=== PATIENT | female | born 1980 | race Caucasian/White ===

== ENCOUNTER 2020-02-27 11:25 | Emergency (ER) | payer OTHER, SELFPAY ==
--- NOTE | ~2020-02-27 | XR_ITS ---
EXAMINATION: XR foot LT min 3V DATE: 02/27/2020 11:52 INDICATION: Left foot pain TECHNIQUE: Dorsoplantar, lateral, and 2 oblique views of the left foot were obtained. COMPARISON: None. FINDINGS: There is no fracture, dislocation, or subluxation. The bones, soft tissues, and joint space s are normal. IMPRESSION: 1. No acute osseous abnormality. Reviewed, dictated and finalized at location A.
[2020-02-27 11:39] VITALS: BP 108/45; PULSE 69; RESP 20; TEMP 37.3; O2SAT 100
--- NOTE | 2020-02-27 11:54 | ED.LOWEXIN ---
HPI - Extremity Injury (Lower) General Chief Complaint: Extremity Injury, Lower Stated Complaint: left foot injury Source: patient and RN notes reviewed Limitations: no limitations History of Present Illness HPI Narrative: The patient, previously mostly healthy and active, presents with left foot pain. Patient states she twisted slightly slipped injuring her left foot last night while playing dodgeball. Symptoms are mild, worse with activity, located at the first metatarsal/instep of the plantar fascia. No bleeding, deformity, prior injury; she continued to play after tightening her shoes and awoke with discomfort this morning Related Data Home Medications Medication Instructions Recorded Confirmed mesalamine PO 02/27/20 norethindrone-e.estradiol-iron tablet 02/27/20 [Blisovi 24 Fe] Allergies Allergy/AdvReac Type Severity Reaction Status Date / Time sesame seed Allergy Unknown Verified 02/27/20 11:51 soy Allergy Unknown Verified 02/27/20 11:51 wheat Allergy Unknown Verified 02/27/20 11:51 dairy Allergy Unknown Uncoded 02/27/20 11:51 egg whites Allergy Unknown Uncoded 02/27/20 11:51 Review of Systems Review of Systems: Narrative: General/Constitutional: No weight loss,fever Eyes: N0: Redness,discharge Ears/Nose/Throat: No: Epistaxis,ear discharge Respiratory: Denies: Hemoptysis Gastrointestinal: No Vomiting, Bleeding-rectal Skin: No Lumps, eruption Neurologic: No Focal Weakness,Sz Hematologic: Denies: Petechiae/Purpura Psychiatric: No: Suicida ideationl All Other Systems: Reviewed and Negative PMFSH Comments At time of signature, agree with nursing past medical, surgical, social and family history. There is no relevant family history pertinent to the presenting complaint Exam Narrative: Exam Narrative: General Appearance: Well appearing, Conjunctiva clear Ears: External ear normal, Auditory canal normal Nose: Normal nose, Nares clear Mouth/Throat: Normal appearing, Normal lips, Supple Respiratory: Airway patent, No respiratory distress MS foot: Normal strength (mostly intact, limited flexion/extension by pain), Tenderness medially at arch/instep, with mild decreased ROM), no swelling , Other (no anterior drawer, no collateral laxity, no Achilles tenderness, no fifth MT tenderness) Skin: Warm, Dry, Normal color Neurological: A&O x3, Normal affect Course Course Emergency Course: Films visualized, interpreted by radiologist, agree, normal see report Vital Signs Vital signs: Vital Signs Temperature 99.1 F 02/27/20 11:39 Pulse Rate 69 02/27/20 11:39 Respiratory Rate 20 02/27/20 11:39 Blood Pressure 108/45 L 02/27/20 11:39 Pulse Oximetry 100 02/27/20 11:39 Temperature 99.1 F 02/27/20 11:39 Pulse Rate 69 02/27/20 11:39 Respiratory Rate 20 02/27/20 11:39 Blood Pressure 108/45 L 02/27/20 11:39 Pulse Oximetry 100 02/27/20 11:39 Discharge Plan Discharge Patient Disposition: Home, Self-Care Condition: Stable Instructions: Foot Sprain (ED) Prescriptions: New tramadol 50 mg tablet 50 mg PO Q6H PRN (Reason: pain) Qty: 15 RF: 1 No Action norethindrone-e.estradiol-iron [Blisovi 24 Fe] 1 mg-20 mcg (24)/75 mg (4) tablet RF: 0 mesalamine 1.2 gram tablet,delayed release (DR/EC) PO RF: 0 Follow-up/Referrals: PHYSICIAN,[facility] [Primary Care Provider] -
== END 2020-02-27 12:53 | disposition home or self-care (01) ==
PROVIDERS: Emergency Provider Emergency Medicine
DX: S93.602A Unspecified sprain of left foot, initial encounter (principal); X50.9XXA Other and unspecified overexertion or strenuous movements or postures, initial encounter
CPT/HCPCS: 73630; 99213; G0463

== ENCOUNTER 2022-08-29 11:47 | Outpatient (CLI) | payer OTHER, SELFPAY ==
[2022-08-29 18:29] LABS: Basophils Absolute Auto 0.1 K/mm3 (0.0-0.1); Basophils Percent Auto 0.7 % (0.2-1.2); Eosinophils Absolute Auto 0.2 K/mm3 (0-0.3); Eosinophils Percent Auto 2.9 % (0-4.4); Hematocrit 43.4 % (37.0-47.0); Hemoglobin 13.8 g/dL (12.0-15.0); Immature Granulocyte Absolute 0.02 K/mm3 (0.00-0.031); Immature Granulocyte Percent A 0.2 % (0-0.5); Lymphocytes Absolute Auto 1.88 K/mm3 (0.9-3.2); Mean Corpuscular HGB Conc 31.8 g/dl (32-36); Mean Corpuscular Hemoglobin 31.3 pg (26-34); Mean Corpuscular Volume 98.4 fl (80-100); Mean Platelet Volume 10.6 fl (7.4-10.4); Monocytes Absolute Auto 0.6 K/mm3 (0.1-0.6); Monocytes Percent Auto 7.3 % (2.6-8.5); Neutrophils Absolute Auto 5.4 K/mm3 (1.3-6.7); Neutrophils Percent Auto 65.9 % (45.5-73.1); Platelet Count Result 325 k/mm3 (150-375); Red Blood Count 4.41 M/mm3 (4.2-5.4); Red Cell Distribution Width 12.9 % (11.5-14.5); White Blood Count 8.2 K/mm3 (4.5-10.0)
[2022-08-29 19:00] LABS: Appearance Urine Clear (Clear); Bacteria Urine Rare /hpf; Bilirubin Urine Negative (Negative); Blood Urine Negative (Negative); Color Urine Yellow (Yellow); Glucose Urine UA Negative (Negative); Ketones Urine Negative (Negative); Leukocyte Esterase Ur 2+ LEU/UL (NEGATIVE); Need Manual Microscopic Reviewed; Nitrate Urine Negative (Negative); Non Pathogenic Casts 0-2; Protein Urine Negative (Negative); Squamous Epithelial Cell Urine Occasional /hpf (Few); Urobilinogen Urine 0.2 mg/dL (<2.0); WBC Urine 0-5 /hpf (0-3)
[2022-08-29 19:01] LABS: Add Urine Microscopic? YES
[2022-08-29 20:05] LABS: Alanine Aminotransferase 16 U/L (6-35); Albumin Level 4.9 g/dL (3.5-5.1); Alkaline Phosphatase 49 U/L (38-126); Anion Gap 4 mmol/L (8-16); Aspartate Amino Transferase 46 U/L (14-36); Bilirubin,Total 0.6 mg/dL (0.2-1.3); Blood Urea Nitrogen 7 mg/dL (7-17); Calcium 9.5 mg/dL (8.4-10.2); Carbon Dioxide 29 mmol/L (22-30); Chloride 106 mmol/L (98-107); Cholesterol 189 mg/dL (0-200); Estimated Glomerular Filt Rate > 60; Glucose 89 mg/dL (65-110); HDL Direct 50 mg/dL; Potassium 4.4 mmol/L (3.4-5.0); Sodium 139 mmol/L (137-145); Triglycerides 52 mg/dL (<150)
[2022-08-29 20:17] LABS: LDL Cholesterol Direct 111 mg/dL
== END 2022-08-29 11:48 | disposition home or self-care (01) ==
LOC: ANHBWCLAB 11:48
PROVIDERS: PCP Family Medicine; Visit Provider Nurse Practitioner
DX: Z76.89 Persons encountering health services in other specified circumstances (principal)
CPT/HCPCS: 36415; 80053; 80061; 81001; 84443; 85025

== ENCOUNTER 2023-09-05 09:02 | Outpatient (CLI) | payer OTHER, SELFPAY ==
[2023-09-05 19:28] LABS: Alanine Aminotransferase 16 U/L (6-35); Albumin Level 4.6 g/dL (3.5-5.1); Alkaline Phosphatase 59 U/L (38-126); Anion Gap 7 mmol/L (4-12); Aspartate Amino Transferase 57 U/L (14-36); Bilirubin,Total 0.5 mg/dL (0.2-1.3); Blood Urea Nitrogen 13 mg/dL (7-17); Calcium 9.8 mg/dL (8.4-10.2); Carbon Dioxide 26 mmol/L (22-30); Chloride 104 mmol/L (98-107); Cholesterol 234 mg/dL (0-200); Estimated Glomerular Filt Rate > 60; Glucose 80 mg/dL (65-110); HDL Direct 58 mg/dL; Potassium 4.6 mmol/L (3.4-5.0); Sodium 137 mmol/L (137-145); Triglycerides 71 mg/dL (<150)
[2023-09-05 19:34] LABS: Hematocrit 43.4 % (37.0-47.0); Hemoglobin 13.6 g/dL (12.0-15.0); Mean Corpuscular HGB Conc 31.3 g/dl (32-36); Mean Corpuscular Hemoglobin 31.4 pg (26-34); Mean Corpuscular Volume 100.2 fl (80-100); Mean Platelet Volume 10.4 fl (7.4-10.4); Platelet Count Result 343 k/mm3 (150-375); Red Blood Count 4.33 M/mm3 (4.2-5.4)
[2023-09-05 19:39] LABS: LDL Cholesterol Direct 154 mg/dL
== END 2023-09-05 09:03 | disposition home or self-care (01) ==
PROVIDERS: PCP Nurse Practitioner Adult Health; Visit Provider Nurse Practitioner Adult Health
DX: Z13.9 Encounter for screening, unspecified (principal)
CPT/HCPCS: 36415; 80053; 80061; 84443; 85027

== ENCOUNTER 2023-11-05 13:40 | Outpatient (CLI) | payer OTHER, SELFPAY ==
--- NOTE | 2023-11-05 14:15 | NEURO_ITS ---
Impression: # Complains of right forearm discomfort. Non-Diabetic. # Normal Nerve Conduction Study. # No Carpal Tunnel Syndrome or ulnar neuropathy. # Ulnar to median cross innervation noted. # Normal needle/EMG exam. Nerve Conduction Studies Anti Sensory Summary Table Stim Site NR Peak (ms) P-T Amp (?V) Site1 Site2 Delta-P (ms) Dist (cm) Gerry (m/s) Right Median Anti Sensory (2-3nd Digit) Wrist 2.6 86.9 Wrist 2-3nd Digit 2.6 14.0 54 Wrist 2.5 69.5 Wrist 2-3nd Digit 2.6 14.0 54 Right Radial Anti Sensory (Base 1st Digit) Wrist 2.3 30.1 Wrist Base 1st Digit 2.3 0.0 Right Ulnar Anti Sensory (5th Digit) Wrist 2.3 64.6 Wrist 5th Digit 2.3 14.0 61 Motor Summary Table Stim Site NR Onset (ms) O-P Amp (mV) Site1 Site2 Delta-0 (ms) Dist (cm) Gerry (m/s) Right Median Motor (Abd Poll Brev) Wrist 2.6 11.5 Elbow Wrist 4.3 26.0 60 Elbow 6.9 8.2 Right Ulnar Motor (Abd Dig Minimi) Wrist 2.7 7.6 A Elbow Wrist 4.4 28.0 64 A Elbow 7.1 6.6 B Elbow Wrist 4.0 0.0 B Elbow 6.7 7.1 F Wave Studies NR F-Lat (ms) L-R F-Lat (ms) Right Median (Mrkrs) (Abd Poll Brev) 24.87 Right Ulnar (Mrkrs) (Abd Dig Min) 25.63 EMG Side Muscle Nerve Root Ins Act Fibs Amp Dur Recrt Comment Right 1stDorInt Ulnar C8-T1 Nml Nml Nml Nml Nml Right Ext Indicis Radial (Post Int) C7-8 Nml Nml Nml Nml Nml Right Ext Digitorum Radial (Post Int) C7-8 Nml Nml Nml Nml Nml Right BrachioRad Radial C5-6 Nml Nml Nml Nml Nml Right PronatorTeres Median C6-7 Nml Nml Nml Nml Nml Right Abd Poll Brev Median C8-T1 Nml Nml Nml Nml Nml Right ABD Dig Min Ulnar C8-T1 Nml Nml Nml Nml Nml MTDD
== END 2023-11-05 13:41 | disposition home or self-care (01) ==
PROVIDERS: PCP Nurse Practitioner Adult Health; Visit Provider Nurse Practitioner Adult Health
DX: G56.01 Carpal tunnel syndrome, right upper limb (principal)
CPT/HCPCS: 95886; 95909

== ENCOUNTER 2024-08-24 10:04 | Outpatient (CLI) | payer OTHER, SELFPAY ==
--- OUTSIDE RECORDS SUMMARY | 2024-08-24 11:20 | XMS_ITS ---
Author Organization Unknown Address [address] [place] [phone] Phone Care Team Providers Care Rinkman Name Role Phone NELIA DURAN Attending Unavailable Immunization Immunization Date Status Additional Notes Code Code System COVID-19, mRNA, LNP-S, PF, 3 0 mcg/0.3 mL dose 06/30/2020 Completed 208 CVX COVID-19, mRNA, LNP-S, PF, 3 0 mcg/0.3 mL dose 07/23/2020 Completed 208 CVX Results TROPONIN LEVEL - Collect Nima e/Time: 07/17/2024 00:45 [facility] ID: [id number] [place] [address], [id number] LOINC: 61520-0 Test Value Unit Reference Range Code Code System Flag TROPONIN < 0.012 ng/mL L=0.000 H=0.033 06845-3 LOINC CBC W/ DIFF - Collect Date/T jose j: 07/16/2024 21:20 [facility] ID: [id number] [address] [place] [address], [phone] LOINC: 22286-5 Test Value Unit Reference Range Code Code System Flag WBC 10.5 10^3uL L=4.8 H=10.8 RBC 4.23 10^6uL L=4.20 H=5.40 HEMOGLOBIN 12.9 g/dL L=12.0 H=16.0 718-7 LOINC HEMATOCRIT 38.9 VOL% L=37.0 H=47.0 4544-3 LOINC MCV 92.0 fL L=81.0 H=99.0 MCH 30.5 pg L=27.0 H=32.0 MCHC 33.2 g/dL L=32.0 H=36.0 PLATELETS 288 10^3uL L=100 H=400 94261-0 LOINC RDW 12.5 % L=11.7 H=15.5 %GRAN 72.4 % L=40.0 H=70.0 11418-3 LOINC H %LYMPH 18.5 % L=20.0 H=45.0 736-9 LOINC L %MONO 3.6 % L=2.0 H=10.0 69532-5 LOINC %EOS 4.8 % L=0.0 H=6.0 713-8 LOINC %BASO 0.3 % L=0.0 H=3.0 706-2 LOINC #NEUT 7.6 10^3uL L=1.9 H=7.6 91480-2 LOINC #LYMPH 2.0 10^3uL L=0.9 H=4.9 08222-0 LOINC #MONO 0.4 10^3uL L=0.1 H=0.9 39549-1 LOINC #EOS 0.5 10^3uL L=0.0 H=0.6 712-0 LOINC #BASO 0.03 10^3uL L=0.00 H=0.10 32500-6 LOINC #IM GRANS 0.0 10^3uL L=0.0 H=7.0 27436-9 LOINC %IM GRANS 0.4 % L=0.0 H=5.0 04632-2 LOINC %NRB 0.0 L=0.0 H=0.2 56662-1 LOINC #NRB 0.000 L=0.000 H=0.012 71740-9 LOINC MANUAL DIFF NOT INDICATED RBC MORPH NOT INDICATED COMPREHENSIVE METABOLIC PANE L - Collect Date/Time: 07/16/2024 21:20 [facility] ID: [id number] [address] [place], [place], [phone] LOINC: 26469-2 Test Value Unit Reference Range Code Code System Flag FASTING UNKNOWN BUN 9 mg/dL L=7 H=20 3094-0 LOINC CREATININE 0.70 mg/dL L=0.52 H=1.04 2160-0 LOINC GLUCOSE 108 mg/dL L=74 H=106 2345-7 LOINC H SODIUM 139 mmol/L L=132 H=144 2951-2 LOINC POTASSIUM 3.8 mmol/L L=3.5 H=5.1 2823-3 LOINC CHLORIDE 107 mmol/L L=98 H=107 2075-0 LOINC CO2 22.0 mmol/L L=22.0 H=30.0 2028-9 LOINC ANION GAP 14 L=10 H=20 58387-8 LOINC OSMOLALITY 287 mOs/kG L=280 H=296 07420-6 LOINC BUN/CREAT 12.9 3097-3 LOINC CALCIUM 9.9 mg/dL L=8.3 H=10.5 45857-2 LOINC AST 29 U/L L=15 H=46 1920-8 LOINC ALT 18 U/L L=9 H=72 1742-6 LOINC ALKALINE PHOS 52 U/L L=38 H=126 6768-6 LOINC TOTAL BILI 0.5 mg/dL L=0.2 H=1.3 1975-2 LOINC ALBUMIN 4.3 G/dL L=3.5 H=5.0 1751-7 LOINC TOTAL PROTEIN 8.1 g/L L=6.3 H=8.2 2885-2 LOINC A/G RATIO 1.1 70641-7 LOINC AGE 44 96713-6 LOINC eGFR NON-AFR 97 ml/min eGFR AFR AMER 117 ml/min D DIMER - Collect Date/Time: 07/16/2024 21:20 [facility] ID: [id number] [address] [place], [place], [phone] LOINC: Test Value Unit Reference Range Code Code System Flag DDIMER 1.30 mg/L FEU L=0.00 H=0.50 H TROPONIN LEVEL - Collect Nima e/Time: 07/16/2024 21:20 [facility] ID: [id number] [place] [address], [id number] LOINC: 63270-4 Test Value Unit Reference Range Code Code System Flag TROPONIN < 0.012 ng/mL L=0.000 H=0.033 97127-2 LOINC CHEST 1V - Completed: 2024 21:38 LOINC: \TM00\12PI\DRAo\BM09\ \MRHo\ [address] [address] ---------NAME--------- NUMBER SEX AGE ADMIT DISC. XRAY# F/C TYPE NOUD ORA EMMANUEL [id number] F 44 07/16/24 31877 CB9 E.R. DATE OF : 1980 M/R# [id number] #: [id number] ED-36 \MRHx\ LOCATION: TRANSCRIBED: 07/16/24 21:52 CHEST 1V 59431 COMPLETED:07/16/24 21:38 [facility] [address] ;cp L chest under breast PHYSICIAN: ROSY R A D I O L O G Y R E P O R T EXAMINATION: Chest x-ray 1 view CLINICAL HISTORY: left chest pain. COMPARISON: None FINDINGS: No dominant consolidations. The costophrenic angles appear clear. No sizable pleural effusion or pneumothorax identified. The cardiomediastinal silhouette appears within normal limits given technique. IMPRESSION: No acute cardiopulmonary findings as visualized. ICAL LAB CLERK \ITLo\ \UNDo\ \UNDx\ \ITLx\ Reviewed and Electronically Signed by: Ethan Vazquez MD Signed Date: 07/16/24 21:52 CT CHEST PE ANGIO W/ CONTRAS T - Completed: 07/16/2024 22:49 LOINC: 90758-1 \TM00\12PI\DRAo\BM09\ \MRHo\ [address] [address] ---------NAME--------- NUMBER SEX AGE ADMIT DISC. XRAY# F/C TYPE NOUD ORA EMMANUEL [id number] F 43 07/16/24 16014 CB9 E.R. DATE OF : 1980 M/R# [id number] PH#: [id number] ED-36 \MRHx\ LOCATION: TRANSCRIBED: 07/16/24 23:34 CT CHEST PE ANGIO W/ CONTRAST [id number] COMPLETED:07/16/24 22:49 KEW 97194 ;L cp, elevated ddimer. mass base L neck, L upper back over scapula PHYSICIAN: ROSY R A D I O L O G Y R E P O R T CLINICAL HISTORY: ;L cp, elevated ddimer. mass base L neck, L upper back over scapula TECHNIQUE: CT angiogram of the chest was performed with intravenous contrast. 3D MIP reconstructed images were created and archived on the PACS system. This exam was performed according to our departmental dose optimization program. Up-to-date CT equipment and radiation dose reduction techniques are utilized as appropriate. CTDI: 7.06 DLP: 365.3 WID: COMPARISON: None FINDINGS: Lower Neck: Unremarkable Axilla, Mediastinum and Loriane: Soft tissue stranding in the left axilla. No thoracic lymphadenopathy. Heart and Great Vessels: Normal-sized heart without pericardial effusion. Thoracic aorta is patent and normal caliber. There is no central, segmental, or subsegmental pulmonary artery filling defects are seen to suggest pulmonary embolism Airway, Lungs and Pleura: Trachea and central airways are patent. Mild biapical pleural-parenchymal scarring. Mild bibasilar scarring or atelectasis. No pleural effusion, airspace consolidation, or pneumothorax. Chest Wall and Osseous Structures: No destructive osseous lesion. Upper abdomen: No acute abnormality. IMPRESSION: 1. No evidence of pulmonary embolism. 2. Soft tissue stranding in the left axilla. A consideration would be cellulitis. Correlate with clinical symptoms and acuity. No discrete fluid collection or soft tissue mass. 3. No pneumonia or pleural effusion ICAL LAB CLERK \ITLo\ \UNDo\ \UNDx\ \ITLx\ Reviewed and Electronically Signed by: CARLOS KENDALL Signed Date: SIGNDATE Social History Type Status Start Date End Date Code Code Syst em Sex Female Hospital Discharge Instructions Should you have any questions prior to discharge, please contact a member of your healthcare team. If you have left the hospital and have any questions, please contact your primary care physician. Reason For Referral No Data Found Plan of Treatment No Data Found Encounters Encounter Diagnosis Start Date Code Code Sys tem Chest pain, unspecified 07/16/2024 SNOM ED-CT Personal Care Team Section Performer Name Performer Role Active Date Inactive Da te Imaging Narrative Notes [facility] 07/16/2024 23:36 [facility] [address] [place] [address] ---------NAME--------- NUMBER SEX AGE ADMIT DISC. XRAY# F/C TYPE NOUD ORA EMMANUEL [id number] F 44 07/16/24 [id number] CB9 E.R. DATE OF : 1980 M/R# [id number] #: [id number] ED-36 LOCATION: TRANSCRIBED: 07/16/24 23:34 CT CHEST PE ANGIO W/ CONTRAST [id number] COMPLETED:07/16/24 22:49 KEW 54826 ;L cp, elevated ddimer. mass base L neck, L upper back over scapula PHYSICIAN: ROSY RADIOLOGY REPORT CLINICAL HISTORY: ;L cp, elevated ddimer. mass base L neck, L upper back over scapula TECHNIQUE: CT angiogram of the chest was performed with intravenous contrast. 3D MIP reconstructed images were created and archived on the PACS system. This exam was performed according to our departmental dose optimization program. Up-to-date CT equipment and radiation dose reduction techniques are utilized as appropriate. CTDI: 7.06 DLP: 365.3 WID: COMPARISON: None FINDINGS: Lower Neck: Unremarkable Axilla, Mediastinum and Loraine: Soft tissue stranding in the left axilla. No thoracic lymphadenopathy. Heart and Great Vessels: Normal-sized heart without pericardial effusion. Thoracic aorta is patent and normal caliber. There is no central, segmental, or subsegmental pulmonary artery filling defects are seen to suggest pulmonary embolism Airway, Lungs and Pleura: Trachea and central airways are patent. Mild biapical pleural-parenchymal scarring. Mild bibasilar scarring or atelectasis. No pleural effusion, airspace consolidation, or pneumothorax. Chest Wall and Osseous Structures: No destructive osseous lesion. Upper abdomen: No acute abnormality. IMPRESSION: 1. No evidence of pulmonary embolism. 2. Soft tissue stranding in the left axilla. A consideration would be cellulitis. Correlate with clinical symptoms and acuity. No discrete fluid collection or soft tissue mass. 3. No pneumonia or pleural effusion ICAL LAB CLERK Reviewed and Electronically Signed by: CARLOS KENDALL Signed Date: SIGNDATE [facility] 07/16/2024 21:[address] [address] ---------NAME--------- NUMBER SEX AGE ADMIT DISC. XRAY# F/C TYPE MARLA EMMANUEL [id number] F 44 07/16/24 83529 CB9 E.R. DATE OF : 1980 M/R# [id number] #: [id number] ED-36 LOCATION: TRANSCRIBED: 07/16/24 21:52 CHEST 1V [id number] COMPLETED:07/16/24 21:38 KEW [id number] ;cp L chest under breast PHYSICIAN: ROSY RADIOLOGY REPORT EXAMINATION: Chest x-ray 1 view CLINICAL HISTORY: left chest pain. COMPARISON: None FINDINGS: No dominant consolidations. The costophrenic angles appear clear. No sizable pleural effusion or pneumothorax identified. The cardiomediastinal silhouette appears within normal limits given technique. IMPRESSION: No acute cardiopulmonary findings as visualized. ICAL LAB CLERK Reviewed and Electronically Signed by: Ethan Vazquez MD Signed Date: 07/16/24 21:52
--- OUTSIDE RECORDS SUMMARY | 2024-08-24 11:20 | XMS_ITS | Clinical Summary ---
Author Organization [address] Address [address] [place] [id number] Care Team Providers Care Dry Cleaning Manager Name Role Phone Jack Juárez MD Primary Care Provider [phone] Allergies Active Allergy Reactions Criticality Noted Date Comments Peanut Unknown 04/20/2019 Medications mesalamine (APRISO) 0.375 gram 24 hr capsuleIndicati ons:Ulcerative Colitis Take 1 capsule (0.375 g total) by mouth daily Active busPIRone (BUSPAR) 5 mg tabletIndicatio ns:Generalized Anxiety Disorder Take 1 tablet (5 mg total) by mouth 3 (three) times a day Active Active Problems Problem Noted Date Diagnosed Date Anogenital (venereal) warts 08/15/2016 BPPV (benign paroxysmal positional vertigo) 07/29 Endometriosis 08/21/2012 S/P tonsillectomy 08/21/2012 Surgical History Surgery Date Site/Laterality Comments TONSILECTOMY, ADENOIDECTOMY, BILATERAL MYRINGOTOMY AND TUBES Bilateral CERVICAL BIOPSY W/ LOOP ELECTRODE EXCISION 04/29/2015 - 04/28/2016 LAPAROSCOPY endometriosis BREAST BIOPSY 04/29/1999 - 04/28/2000 Right benign surgical bx Medical History Medical History Date Comments Allergic H/O Leep 2015 Endometriosis determined by laparoscopy UC (ulcerative colitis) (HCC) Family History Medical History Relation Name Comments Breast cancer Maternal Grandmother Breast cancer Maternal cousin Diabetes Mother Ovarian cancer Neg Hx Thyroid cancer Neg Hx Relation Name Status Comments Cousin Maternal Grandmother Maternal cousin Mother Social History Tobacco Use Types Packs/Day Years Used Date Smoking Tobacco: Light Smoker Smokeless Tobacco: Never Alcohol Use Standard Drinks/Week Comments Yes 0 (1 standard drink = 0.6 oz pur e alcohol) AUDIT-C Answer Date Recorded Q1: How often do you have a drink containing alc ohol? Monthly or less 07/10/2019 Q2: How many drinks containi ng alcohol do you have on a typical day when you are drinking? 1 or 2 07/10/2019 Q3: How often do you have si x or more drinks on one occasion? Never 07/10/2019 Comments No Sex and Gender Information Value Date Recorded Sex Assigned at Not on file Legal Sex Female 2:00 AM COSMETIC DENTIST Gender Identity Not on file Sexual Orientation Not on file Obstetrics History Para Term AB IAB SAB Ectopic Multiple Livin g Live Births 1 0 0 Date Outcome GA Total Labor Labor/2nd/3rd Weight Sex Type Anes PTL Talita A1 A5 Name Clin Comments Last Filed Vital Signs Vital Sign Reading Time Taken Comments Blood Pressure 104/70 08/30/2023 11:06 AM CDT Pulse 64 02/10/2022 2:52 PM CDT Temperature 37 C (98.6 F) 02/10/2022 2:52 PM CDT Respiratory Rate 16 02/10/2022 2:52 PM CDT Oxygen Saturation 96% 02/10/2022 2:52 PM CDT Inhaled Oxygen Concentration - - Weight 66.2 kg (146 lb) 08/30/2023 11:06 AM CDT Height 160 cm (5' 2.99 ) 08/30/2023 11:06 AM CDT Body Mass Index 25.87 08/30/2023 11:06 AM CDT Plan of Treatment Health Maintenance Due Date Last Done Comments Depression Screening 1980 Hepatitis C Screening 1980 DTaP/Tdap/Td Vaccine (1 - Tdap) 01/15/1992 Varicella Vaccines (1 of 2 - 13+ 2-dose series) 1994 Hepatitis B Screening 1999 Pneumococcal vaccine <65 (1 of 2 - PCV) 01/15/2000 Covid-19 Vaccine (3 - season) 2023 07/23/2020, 06/30/2020 Cervical Cancer Screening 08/29/20242023, 08/30/2023, 08/24/2022, Additional history exists Regular Well Visit/Exam 18-64 08/29/2024 08/30/2023, 08/24/2022, 07/11/2020, Additional history exists Influenza Vaccine (Season Ended) 2024 01/28/2012 Breast Cancer Screening-Mammogram 04/28/2025 04/28/2024, 10/15/2023, 11/13/2022, Additional history exists HPV Vaccines Aged Out No longer eligi ble based on patient's age to complete this topic Procedures Procedure Name Priority Date/Time Associated Diagnosis Comments DIAGNOSTIC MAMMOGRAM BILATERAL W GERMÁN Schedule Routine, Read Routine (OP Routine) 04/28/2024 11:05 AM COSMETIC DENTIST Abnormal mammogram HIGH RISK HPV DNA DETECTION WITH GENOTYPING Routine 08/30/2023 11:50 AM CDT Well woman exam H/O LEEP from Last 3 Months or Most Recently Relevant to Health Maintenance Results * Diagnostic Mammogram Bilateral W Germán (04/28/2024 11:05 AM COSMETIC DENTIST) Anatomical Region Laterality Modality Breast Bilateral Mammography 04/28/2024 3:02 PM COSMETIC DENTIST Impressions 04/28/2024 3:02 PM COSMETIC DENTIST No evidence to suggest malignancy is seen. The patient may return to screening mammography as per ACR guidelines. OVERALL FINAL ASSESSMENT: [id number] Electronically signed by: Shena Burgos M.D. Narrative 04/28/2024 3:02 PM COSMETIC DENTIST EXAMINATION: BILATERAL DIGITAL DIAGNOSTIC MAMMOGRAM AND DIGITAL BREAST TOMOSYNTHESIS; LEFT BREAST SONOGRAM HISTORY: Follow-up COMPARISON: Cases dating back to 10/03/2022 TECHNIQUE: Full field digital mammographic views of the bilateral breast(s) were performed, including computer aided detection (CAD) and digital breast tomosynthesis (DBT). Directed ultrasound evaluation of the left breast(s) was performed. BREAST PARENCHYMAL COMPOSITION: The breasts are heterogeneously dense, which may obscure small masses. MAMMOGRAM FINDINGS: The previously described dense tissue on the left is unchanged. There are no suspicious masses. There is no suspicious group of calcifications on the right, as previously described. No suspicious calcifications are seen. There is no unexplained architectural distortion. There is no skin thickening seen. There are no mammographically abnormal lymph nodes seen in the axillae or elsewhere. ULTRASOUND FINDINGS: Sonography through the 9:00 left breast again demonstrates a mixed echogenicity structure, mostly anechoic. It has not significantly changed in size or sonographic appearance. Chele Shaffer MD IMG MAMMO PROCEDURES Fi nal Result * High Risk HPV DNA Detection with Genotyping (Molecular component) (08/30/2023 11:50 AM CDT) HPV HR 16 Not Detected Not Detected [facility] Comment:Testing performed by : [facility], [address] [place]., [address] HPV HR 18 Not Detected Not Detected [facility] Comment:Testing performed by : [facility], [address] [place]., [address] HPV HR Non 16/18 Not Detected Not Detected [facility] Comment: Interpretive Data Nucleic acid amplification for detection of high-risk Human Papilloma virus (HPV) is performed by the Aakash Yaneth 6800 HPV test. This assay specifically detects HPV-16 and HPV-18 genotypes. The following HPV genotypes are detected as high-risk HPV: HPV-31, 33, 35, ,39, 45, 51, 52, 56, 58, 59, 66, and 68. This assay has been approved by the [place] Food and Drug Administration for detection of HPV in cervical specimens collected by a physician using an endocervical brush/spatula or cervical broom and placed in the ThinPrep Pap Test PreservCyt collection containers. The performance characteristics of this test have been verified by the [facility] Molecular Infectious Disease laboratory. Correlate with separately reported cytology results, as applicable. Interpretive data last revised 22 Testing performed by: [facility], [address] [place]., [address] Endocervical 08/30/2023 11:5 0 AM CDT 08/30/2023 4:54 PM CDT Narrative [facility] 08/31/2023 5:06 AM CDT Clinical history and diagnosis->hx LEEP Testing type->Screening Last menstrual period (date if known)->08/18/23 Chele Shaffer MD LAB BODY FLUIDS AND STO OLS ORDERABLES Final Result [facility] [address] [facility] Department [place] [address] [facility] from Last 3 Months or Most Recently Relevant to Health Maintenance Insurance [facility] Data Driven Delivery System [facility] Data Driven Delivery System HMO Care Teams Dry Cleaning Manager Relationship Specialty Start Date End Date Jack Juárez MD PCP - General Family Practice 08/24/22
--- OUTSIDE RECORDS SUMMARY | 2024-08-24 11:20 | XMS_ITS | Clinical Summary ---
Author Organization [facility] Address [address] [place] [id number] Care Team Providers Care Easter Bunny Name Role Phone Unavailable Primary Care Provider Unavailabl e Social History Tobacco Use Types Packs/Day Years Used Date Smoking Tobacco: Never Assessed Comments Unknown Sex and Gender Information Value Date Recorded Sex Assigned at Not on file Legal Sex Female 7:33 PM CDT Gender Identity Not on file Sexual Orientation Not on file Plan of Treatment Health Maintenance Due Date Last Done Comments Cervical Cancer Screening Pa p Smear (Age 30 to 64) Every 3 Years 1981 Annual Physical 01/15/1984 Hepatitis C 1999 DTaP, Tdap and Td Vaccines ( 1 - Tdap) 01/15/2000 Hepatitis B Vaccines (1 of 3 - 19+ 3-dose series) 01/15/2000 Cervical Cancer Screening Pa p with HPV Testing (Age 30 to 64) Every 5 Years 2011 Cervical Cancer Screening with HPV 2011 Mammogram Screening 2021 COVID-19 Vaccine (2023-2 5 season) 2023 HPV Vaccines Aged Out No longer eligi ble based on patient's age to complete this topic Meningococcal B Vaccine Aged Out No l onger eligible based on patient's age to complete this topic Meningococcal Vaccine Aged Out No diandra ramona eligible based on patient's age to complete this topic Pneumococcal Vaccine: Pediat rics (0 to 5 Years) and At-Risk Patients (6 to 49 Years) Aged Out No longer eligible b ased on patient's age to complete this topic RSV Immunizations Under 20 Months Aged Out No longer eligible based on patient's age to complete this topic
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
--- OUTSIDE RECORDS SUMMARY | 2024-08-24 11:20 | XMS_ITS | Clinical Summary ---
Author Organization [facility] Address [address] [place] [address] Phone Care Team Providers Care Senior Financial Analyst Name Role Phone Provider, None Primary Care Provider Unavailabl e Allergies No known active allergies Medications pantoprazole (PROTONIX) 40 MG Tablet Delayed Response Take 1 Tablet by mouth daily. 30 Tablet 07/28/2021 Active Active Problems No known active problems Social History Tobacco Use Types Packs/Day Years Used Date Smoking Tobacco: Every Day Cigarettes Smokeless Tobacco: Never Alcohol Use Standard Drinks/Week Comments Not Currently 0 (1 standard drink = 0.6 oz pur e alcohol) Socially Comments No Sex and Gender Information Value Date Recorded Sex Assigned at Not on file Legal Sex Female 5:45 AM CDT Gender Identity Not on file Sexual Orientation Not on file Last Filed Vital Signs Vital Sign Reading Time Taken Comments Blood Pressure 103/56 07/28/2021 7:15 AM CDT Pulse 65 07/28/2021 7:15 AM CDT Temperature 37.2 C (99 F) 07/28/2021 5:54 AM CDT Respiratory Rate 18 07/28/2021 7:15 AM CDT Oxygen Saturation 97% 07/28/2021 7:15 AM CDT Inhaled Oxygen Concentration - - Weight 62.6 kg (138 lb) 07/28/2021 5:54 AM CDT Height 160 cm (5' 3 ) 07/28/2021 5:54 AM CDT Body Mass Index 24.45 07/28/2021 5:54 AM CDT Plan of Treatment Health Maintenance Due Date Last Done Comments Hepatitis C Virus (HCV) Screening 1981 TdaP Immunization 1981 Hepatitis B Immunization (1 of 3 - 19+ 3-dose series) 01/15/2000 Influenza Immunization (#1) 2023 01/28/2012 SARS-COV-2 Immunization ( season) 2023 07/23/2020, 06/30/2020 Respiratory Syncytial Virus (RSV) Immunization (Adult) (1 - 1-dose 75+ series) 01/15/2056 Meningococcal Immunization (ACWY) Aged Out No longer eligible b ased on patient's age to complete this topic Pneumococcal Immunization Combined Aged Out No longer eligible b ased on patient's age to complete this topic Rotavirus Immunization Aged Out No lo nger eligible based on patient's age to complete this topic [facility] [place] [facility] Care Teams Senior Financial Analyst Relationship Specialty Start Date End Date Provider, None [place] PCP - General 07/28/21
--- OUTSIDE RECORDS SUMMARY | 2024-08-24 11:20 | XMS_ITS | Referral Summary ---
Author Organization [address] Address [address] [place] [id number] Care Team Providers Care Care Taker Name Role Phone Jack Juárez MD Primary Care Provider [phone] Allergies Active Allergy Reactions Criticality Noted Date [...] vertigo) 07/29 Endometriosis 08/21/2012 S/P tonsillectomy 08/21/2012 Social History Tobacco Use Types Packs/Day Years [...] on file Legal Sex Female 2:00 AM WARDROBE ASSISTANT Gender Identity Not on file Sexual Orientation [...] 08/30/2023 11:06 AM CDT Plan of Treatment Not on file Procedures Procedure Name Priority Date/Time Associated Diagnosis Comments DIAGNOSTIC MAMMOGRAM BILATERAL W GERMÁN Schedule Routine, Read Routine (OP Routine) 04/28/2024 11:05 AM WARDROBE ASSISTANT Abnormal mammogram HIGH RISK HPV DNA DETECTION WITH GENOTYPING Routine 08/30/2023 11:50 AM CDT Well woman exam H/O LEEP from Last 3 Months or Most Recently Relevant to Health Maintenance Results * Diagnostic Mammogram Bilateral W Germán (04/28/2024 11:05 AM WARDROBE ASSISTANT) Anatomical Region Laterality Modality Breast Bilateral Mammography 04/28/2024 3:02 PM WARDROBE ASSISTANT Impressions 04/28/2024 3:02 PM WARDROBE ASSISTANT No evidence to suggest malignancy is seen. The patient may return to screening mammography as per ACR guidelines. OVERALL FINAL ASSESSMENT: [id number] Electronically signed by: Shena Burgos M.D. Narrative 04/28/2024 3:02 PM WARDROBE ASSISTANT EXAMINATION: BILATERAL DIGITAL DIAGNOSTIC MAMMOGRAM AND DIGITAL [...] HPV HR 16 Not Detected Not Detected [facility] Comment:Testing performed by : [facility], [address] [place] [address]., [id number] HPV HR 18 Not Detected Not Detected [facility] Comment:Testing performed by : [facility], [address] [place]., [address] HPV HR Non 16/18 Not Detected Not [...] this test have been verified by the [facility] laboratory. Correlate with separately reported cytology results, as applicable. Interpretive data last revised 22 Testing performed by: [facility], [address] [place]., [address] Endocervical 08/30/2023 11:5 0 AM CDT 08/30/2023 4:54 PM CDT Narrative [facility] SUGGS - 08/31/2023 5:06 AM CDT Clinical history and diagnosis->hx LEEP Testing type->Screening Last menstrual period (date if known)->08/18/23 Chele Shaffer MD LAB BODY FLUIDS AND STO OLS ORDERABLES Final Result [facility] [address] [facility] [place] [address] [facility] from Last 3 Months or Most Recently Relevant to Health Maintenance Insurance [facility] [employer] [facility] [employer] Care Teams Care Taker Relationship Specialty Start Date End Date Jack Juárez MD PCP - General Family Practice 08/24/22
--- OUTSIDE RECORDS SUMMARY | 2024-08-24 11:20 | XMS_ITS | Clinical Summary ---
Author Organization [facility] Address [address] [place] [phone] Care Team Providers Care Copy Editor Name Role Phone Ronen Dahl MD Primary Care Provider [phone] Allergies No known active allergies Medications drospirenone-e. estradiol-lm.FA (BEYAZ) 3-0.02-0.451 mg (24) Oral Tab tablet Take 1 Tab by mouth daily. Active erythromycin-be nzoyl peroxide (BENZAMYCIN) 3-5 % Topical GelIndications: Acne Apply to affected area 2 times daily. 23.3 Gram 2 08/21/2012 Active Active Problems Problem Noted Date Diagnosed Date S/P tonsillectomy 08/21/2012 Endometriosis 08/21/2012 BPPV (benign paroxysmal positional vertigo) 07/29 Immunizations Immunization Administration Dates Next Due Influenza Seasonal Unspecified Formulation IM Family History Medical History Relation Name Comments Diabetes Mother Relation Name Status Comments Father Alive Mother Alive Social History Tobacco Use Types Packs/Day Years Used Date Smoking Tobacco: Never Smokeless Tobacco: Never Alcohol Use Standard Drinks/Week Comments Yes 2.5 (1 standard drink = 0.6 oz p ure alcohol) Comments No Sex and Gender Information Value Date Recorded Sex Assigned at Not on file Legal Sex Female 2:00 PM CDT Gender Identity Not on file Sexual Orientation Not on file Occupation Industry Job Start Date Job End Date Not on file Not on file Not on file Not on file Last Filed Vital Signs Vital Sign Reading Time Taken Comments Blood Pressure 90/70 08/21/2012 10:26 AM CDT Pulse 64 08/21/2012 10:26 AM CDT Temperature - - Respiratory Rate 12 08/21/2012 10:26 AM CDT Oxygen Saturation - - Inhaled Oxygen Concentration - - Weight 53.8 kg (118 lb 8 oz) 08/21/2012 10:26 AM CDT Height 162.6 cm (5' 4 ) 08/21/2012 10:26 AM CDT Body Mass Index 20.34 08/21/2012 10:26 AM CDT Plan of Treatment Health Maintenance Due Date Last Done Comments DTAP/TDAP/TD VACCINES (1 - Tdap) 01/15/2000 HEPATITIS B VACCINES (1 of 3 - 19+ 3-dose series) 01/15/2000 HPV/Cotest (21-29) 2002 HPV/Cotest (30-65) 2011 CERVICAL CANCER SCREENING 05/30/2015 PAP SMEAR 05/30/2015 05/30/2012 BREAST CANCER SCREENING 2021 INFLUENZA VACCINE (#1) 2023 01/28/2012 HPV VACCINES Aged Out No longer eligi ble based on patient's age to complete this topic Care Teams Copy Editor Relationship Specialty Start Date End Date Ronen Dahl MD PCP - General Internal Medicine 08/21/12
[2024-08-24 20:06] LABS: Hematocrit 41.5 % (37.0-47.0); Hemoglobin 12.6 g/dL (12.0-15.0); Mean Corpuscular HGB Conc 30.4 g/dl (32-36); Mean Corpuscular Hemoglobin 30.3 pg (26-34); Mean Corpuscular Volume 99.8 fl (80-100); Mean Platelet Volume 10.1 fl (7.4-10.4); Platelet Count Result 335 k/mm3 (150-375); Red Blood Count 4.16 M/mm3 (4.2-5.4); Red Cell Distribution Width 13.2 % (11.5-14.5); White Blood Count 6.9 K/mm3 (4.5-10.0)
[2024-08-24 22:42] LABS: Alanine Aminotransferase 14 U/L (6-35); Albumin Level 4.2 g/dL (3.5-5.1); Alkaline Phosphatase 52 U/L (38-126); Anion Gap 8 mmol/L (4-12); Aspartate Amino Transferase 50 U/L (14-36); Bilirubin,Total 0.3 mg/dL (0.2-1.3); Blood Urea Nitrogen 10 mg/dL (7-17); Calcium 9.4 mg/dL (8.4-10.2); Carbon Dioxide 28 mmol/L (22-30); Chloride 102 mmol/L (98-107); Cholesterol 215 mg/dL (0-200); Estimated Glomerular Filt Rate > 60; Glucose 97 mg/dL (65-110); HDL Direct 41 mg/dL; Potassium 4.4 mmol/L (3.4-5.0); Sodium 138 mmol/L (137-145); Triglycerides 84 mg/dL (<150)
[2024-08-24 22:53] LABS: LDL Cholesterol Direct 127 mg/dL
[2024-08-24 23:11] LABS: Thyroid Stimulating Hormone 0.577 uIU/mL (0.465-4.680)
== END 2024-08-24 10:05 | disposition home or self-care (01) ==
LOC: ANHBWCLAB 10:04
PROVIDERS: PCP Nurse Practitioner Adult Health; Visit Provider Nurse Practitioner Adult Health
DX: Z13.9 Encounter for screening, unspecified (principal)
CPT/HCPCS: 36415; 80053; 80061; 84443; 85027

== ENCOUNTER 2025-02-27 09:31 | Emergency (ER) | payer OTHER, SELFPAY ==
--- NOTE | ~2025-02-27 | XR_ITS ---
Examination: [id number] Clinical History: lateral rib pain x1 month. golf injury Comparison: None Technique: AP chest, 3 views left ribs Findings: Heart size normal. Lungs clear. No acute bony abnormality. IMPRESSION: 1. No acute cardiopulmonary findings given portable technique. 2. No rib fracture identified. Reviewed, dictated and finalized at location R.
[2025-02-27 09:43] VITALS: BP 109/72; PULSE 81; RESP 16; TEMP 36.9; O2SAT 100
--- NOTE | 2025-02-27 10:17 | ED_ITS ---
HPI - General Adult General Chief complaint: Chest Pain Stated complaint: L RIB PAIN Time Seen by Provider: 02/27/25 10:06 Source: patient and RN notes reviewed Mode of arrival: ambulatory Limitations: no limitations History of Present Illness HPI narrative: Patient presents today complaining of left anterior and lateral rib pain 3 weeks. At onset of symptoms, patient was golfing, went to hit the ball on some Astroturf, struck the ground, but did experience pain until the next day in the rib area. Following this, she ran out of her [employer] for allergies and had been coughing, sneezing for the past couple of weeks, exacerbating this rib pain. She has been taking Tylenol and ibuprofen with some improvement and currently rates her pain 10/06. Related Data Home Medications ?Medication ?Instructions ?Recorded ?Confirmed ?Last Taken ?Type mesalamine 1.2 gram tablet,delayed 2.4 g PO DAILY 01/2002/27/25 Unknown History release cetirizine 10 mg tablet (Zyrtec) 10 mg PO DAILY PRN al lergy symptoms 02/27/25 02/27/25 Unknown History Allergies Allergy/AdvReac Type Severity Reaction Status Date / Time sesame seed Allergy Unknown Verified 02/27/25 09:43 soy Allergy Unknown Verified 02/27/25 09:43 wheat Allergy Unknown Verified 02/27/25 09:43 dairy Allergy Unknown Uncoded 09/07/24 09:53 egg whites Allergy Unknown Uncoded 09/07/24 09:53 PMFSH Past Medical History Medical History Pharyngitis Strep throat Congestion of respiratory tract Family History Family History Father Hypertension Heart disease Mother Diabetes mellitus Grandparent History of ETOH abuse Breast cancer Depression Grandparent Stomach cancer Heart disease Depression Hypertension Social History Social History Smoking packs per day: 10 Smoking cigarettes per day: 200.0 Smoking status: Current every day smoker Tobacco type: cigarettes Alcohol intake: current Alcohol use details: social Substance use: never Substance use type: does not use Lack of Transportation: No Lack of Food: Never True Current Housing: I Have Housing Concerned About Future Housing: No Difficulty Paying Gas/Electric Bills: No Difficulty Paying for Meds: No Currently Unemployed: No Education: Master's Degree or Higher Difficulty w/ Childcare or Family Care: No Living arrangements: alone Occupation/Education: occupation 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 Please see nursing chart for further information. There is no relevant family history pertinent to the presenting complaint Exam Narrative: GENERAL: Well-appearing, well-nourished, and in no acute distress. HEAD: Normocephalic, atraumatic. EYES: EOMI. No redness or drainage. Conjunctivae normal. ENT: Mucous membranes pink and moist. NECK: Normal AROM. CHEST: No respiratory distress. Clear to auscultation. Tenderness to the left anterior ribs. Patient localizes pain to the lateral and slightly posterior ribs but no tenderness to these areas. No crepitus, step-off noted. No edema, ecchymosis, erythema noted. HEART: Regular rate and rhythm. No murmur appreciated. Normal peripheral pulses. EXTREMITIES: Normal range of motion. No edema. SKIN: Warm, dry, no rash. Capillary refill normal. Normal skin turgor. NEURO: No focal deficits. Alert and oriented x3. Gait steady. PSYCH: Normal affect. No signs of depression or anxiety. Course Course Level of Care: Express Care Visit Vital Signs Vital signs: Vital Signs Temperature 98.5 F 02/27/25 09:43 Pulse Rate 81 02/27/25 09:43 Respiratory Rate 16 02/27/25 09:43 Blood Pressure 109/72 02/27/25 09:43 Pulse Oximetry 100 02/27/25 09:43 Temperature 98.5 F 02/27/25 09:43 Pulse Rate 81 02/27/25 09:43 Respiratory Rate 16 02/27/25 09:43 Blood Pressure 109/72 02/27/25 09:43 Pulse Oximetry 100 02/27/25 09:43 Reviewed Medical Decision Making [facility] Narrative Medical decision making narrative: Patient presents today complaining of left anterior and lateral rib pain 3 weeks. At onset of symptoms, patient was golfing, went to hit the ball on some Astroturf, struck the ground, but did experience pain until the next day in the rib area. Following this, she ran out of her [employer] for allergies and had been coughing, sneezing for the past couple of weeks, exacerbating this rib pain. She has been taking Tylenol and ibuprofen with some improvement and currently rates her pain 6/10. Upon exam, Tenderness to the left anterior ribs. Patient localizes pain to the lateral and slightly posterior ribs but no tenderness to these areas. No crepitus, step-off noted. No edema, ecchymosis, erythema noted. Chest x-ray is negative. Patient will be started on some Flexeril and prednisone for chest wall strain. Patient agrees with plan. Vital signs stab le. Anticipatory guidance given. Differential Diagnosis Differential Diagnosis: Rib fracture, chest wall strain Vital Signs Vital Signs: Vital Signs Temperature 98.5 F 02/27/25 09:43 Pulse Rate 81 02/27/25 09:43 Respiratory Rate 16 02/27/25 09:43 Blood Pressure 109/72 02/27/25 09:43 Pulse Oximetry 100 02/27/25 09:43 Temperature 98.5 F 02/27/25 09:43 Pulse Rate 81 02/27/25 09:43 Respiratory Rate 16 02/27/25 09:43 Blood Pressure 109/72 02/27/25 09:43 Pulse Oximetry 100 02/27/25 09:43 Imaging Data Radiologist's impression: ITS Impressions Ribs w/Chest X-Ray 02/27/25 10:21 IMPRESSION: 1. No acute cardiopulmonary findings given portable technique. 2. No rib fracture identified. Critical Care Time Critical Care Time Critical Care Time: No Discharge Plan Discharge Clinical Impression: Strain of chest wall Qualifiers: Encounter type: initial encounter Qualified Code(s): S29.011A - Strain of muscle and tendon of front wall of thorax, initial encounter Patient Disposition: Home Condition: Stable Instructions: Chest Wall Pain (ED) Additional Instructions: Your rib x-ray is negative. Please take both medications as prescribed. Do not drive within 8 hours of taking the Flexeril as it can make you drowsy. Continue Tylenol or ibuprofen if needed for discomfort. Follow-up with your PCP in 1 week if symptoms persist. Patient Language: French Prescriptions: New cyclobenzaprine 10 mg tablet 10 mg PO TID PRN (Reason: muscle spasm) Qty: 20 0RF prednisone 20 mg tablet 40 mg PO DAILY 5 Days Qty: 10 0RF No Action cetirizine [Zyrtec] 10 mg tablet 10 mg PO DAILY PRN (Reason: allergy symptoms) mesalamine 1.2 gram tablet,delayed release (DR/EC) 2.4 g PO DAILY fluoxetine 10 mg capsule See Rx Instructions .ROUTE .COMPLEX Qty: 90 1RF Dose Instruction: TAKE 1 CAPSULE BY MOUTH EVERY EVENING Rx Instructions: TAKE 1 CAPSULE BY MOUTH EVERY EVENING valacyclovir [Valtrex] 1 gram tablet 2,000 mg PO Q12H PRN (Reason: cold sore) Qty: 30 0RF Follow-up/Referrals: Nivia Thornton APRN [Primary Care Provider, Family Practice] Time of Disposition: 10:38
== END 2025-02-27 10:42 | disposition home or self-care (01) ==
PROVIDERS: Emergency Provider Nurse Practitioner; PCP Nurse Practitioner Adult Health
DX: S29.011A Strain of muscle and tendon of front wall of thorax, initial encounter (principal); W22.8XXA Striking against or struck by other objects, initial encounter; Y93.53 Activity, golf; F17.210 Nicotine dependence, cigarettes, uncomplicated
CPT/HCPCS: 71101; 99213; G0463